=== PATIENT | male | born 1940 | race Caucasian/White ===

== ENCOUNTER 2021-10-18 11:35 | Emergency (ER) | payer MEDICARE, OTHER ==
[2021-10-18 12:40] LABS: HEMOGLOBIN 14.2 gm/dl (14.0-17.5); RED BLOOD COUNT 4.46 M/UL (4.20-5.50); WHITE BLOOD COUNT 17.6 K/UL (4.5-11.0)
[2021-10-18 13:10] LABS: BUN/CREATININE RATIO 28 (0-10)
[2021-10-18] MEDS ORDERED: PROVENTIL HFA6.7 GM INH (15:16)
[2021-10-18] MEDS ORDERED: DOXYCYCLINE HY100 MG PO (15:16)
== END 2021-10-18 18:00 | disposition home or self-care (01) ==
LOC: ER1 11:35
PROVIDERS: Emergency Medicine
DX: U07.1 COVID-19 (principal); I10 Essential (primary) hypertension; Z85.828 Personal history of other malignant neoplasm of skin
CPT/HCPCS: 36600; 71045; 80053; 82550; 82553; 82803; 83880; 84484; 85025; 85379; 87040; 93005; 94640; 96374; 99285; J0696; Q9967